=== PATIENT | male | born 1970 | race Caucasian/White ===

== ENCOUNTER → 2017-08-01 | Outpatient (CLI) | payer BC ==
[~2017-08-01] MED LIST: ALPR-411 PO; DULO60CA44 PO; TRAZ50TA35 PO
--- NOTE | 2017-08-01 19:07 | DIAGNOSTIC IMAGING REPORT ---
L-SPINE MIN 4 VIEWS ROUTINE CLINICAL HISTORY: 47 years-old Male presenting with LOWER BACK PAIN, SCIATICA LEFT SIDE. TECHNIQUE: Frontal, bilateral oblique, and lateral views of the lumbar spine and coned in lateral view of the lumbosacral junction were obtained. COMPARISON: None. FINDINGS: Mild anterior vertebral body height loss of T12 and L1 may be within the range of normal. Normal lumbar lordosis. Remaining vertebral bodies demonstrate normal height and alignment. Intervertebral disc spaces preserved. Anterior osteophytosis noted in the lower thoracic spine. No evidence of osseous neural foraminal narrowing. No radiographic evidence of fracture or subluxation. Moderate stool burden throughout the colon. No gross pneumoperitoneum. IMPRESSION: No radiographic evidence of acute osseous injury. Degenerative change of the lower thoracic spine without evidence of osseous neural foraminal narrowing. Electronically signed by: Hakan Carlton M.D. 08/01/2017 7:06 PM Dictated Date/Time: 08/01/2017 7:04 PM
== END | disposition home or self-care (01) ==
LOC: C.RAD 18:34
PROVIDERS: ATTEND Family Medicine
DX: M54.5 Low back pain (principal); M54.32 Sciatica, left side

== ENCOUNTER → 2017-09-02 | Outpatient (CLI) | payer BC | END | disposition home or self-care (01) | LOC: C.RDSM 14:45 | PROVIDERS: ATTEND Family Medicine Sports Medicine | DX: M25.522 Pain in left elbow (principal) ==

== ENCOUNTER → 2018-04-18 | Outpatient (CLI) | payer OTHER ==
[~2018-04-18] MED LIST changes: +LORA-749 PO
--- NOTE | 2018-04-18 09:04 | DIAGNOSTIC IMAGING REPORT ---
LEG LENGTH STUDY (WHOLE LEG) CLINICAL HISTORY: 47 years-old Male presenting with LEG LENGTH DISCREPENCY,SCOLIOSIS. TECHNIQUE: Frontal view of the bilateral lower extremities in standing position was obtained. COMPARISON: Knee radiographs from 04/21/2015. FINDINGS: Right: Right femur length: 51.9 cm. Right lower leg length: 39.6 cm. Total right leg length: 91.5 cm. Left: Left femur length: 51.3 cm. Left lower leg length: 39.8 cm. Total left leg length: 91.1 cm. Leg length is concordant within 1 cm. No acute fracture or malalignment. Posttraumatic deformity of the right medial malleolus. No advanced degenerative change. No radiographic soft tissue abnormality. IMPRESSION: 1. Leg length is concordant within 1 cm. 2. No significant osseous abnormality. Electronically signed by: Hakan Carlton M.D. 04/18/2018 9:03 AM Dictated Date/Time: 04/18/2018 8:58 AM
--- NOTE | 2018-04-18 09:05 | DIAGNOSTIC IMAGING REPORT ---
SCOLIOSIS 2 VIEW (AP LAT) HISTORY: 47 years-old Male LEG LENGTH DISCREPENCY,SCOLIOSIS COMPARISON: Lumbar spine radiographs 08/01/2017 TECHNIQUE: AP and lateral views of the spine for scoliosis series radiographs. FINDINGS: There are 12 rib-bearing thoracic-type vertebral segments with 5 nonrib-bearing lumbar type segments. There is 7 degrees levoscoliosis of the thoracic spine measured from T3-T8 without significant scoliosis of the lumbar spine identified. No segmentation anomalies or suspicious bone lesions. No acute fracture or subluxation identified. The right clavicle is 9 mm superior to the left. The right iliac crest is 4 mm superior to the left. Gravitational line drawn through the center of the L3 vertebral body traverses 2.1 cm posterior to the sacral promontory. Minimal marginal spurring about the bilateral hips. Moderate volume of formed stool throughout the colon incidentally noted suggesting constipation. At least mild intervertebral disc space narrowing at C5-C6 and C6-C7. IMPRESSION: 1. Minimal convex left curvature of the upper thoracic spine. 2. No significant lumbar scoliosis identified. 3. Additional findings as above. The above report was generated using voice recognition software. It may contain grammatical, syntax or spelling errors. Electronically signed by: Carlos Roberts M.D. 04/18/2018 9:04 AM Dictated Date/Time: 04/18/2018 8:58 AM
== END | disposition home or self-care (01) ==
LOC: C.RADBC 08:42
PROVIDERS: ATTEND Physician Assistant
DX: M41.9 Scoliosis, unspecified (principal); M21.70 Unequal limb length (acquired), unspecified site